=== PATIENT | male | born 1960 | race Hispanic/Latino ===

== ENCOUNTER 2019-09-07 17:04 | Emergency (ER) | payer BC | END 2019-09-07 17:49 | disposition home or self-care (01) | LOC: EDH 17:04 | DX: M25.572 Pain in left ankle and joints of left foot (principal); G89.29 Other chronic pain | CPT/HCPCS: 99282 ==

== ENCOUNTER → 2023-07-13 | Outpatient (CLI) | payer BC, OTHER | END | disposition home or self-care (01) | LOC: RAH 13:56 | PROVIDERS: ATTEND Family Medicine | DX: G31.89 Other specified degenerative diseases of nervous system (principal); G93.89 Other specified disorders of brain; R53.1 Weakness; R41.89 Other symptoms and signs involving cognitive functions and awareness; Z98.890 Other specified postprocedural states | CPT/HCPCS: 70450 ==

== ENCOUNTER → 2023-07-17 | Outpatient (CLI) | payer OTHER | END | disposition home or self-care (01) | LOC: RAH 15:09 | PROVIDERS: ATTEND Family Medicine | DX: G45.9 Transient cerebral ischemic attack, unspecified (principal); R53.1 Weakness; R41.89 Other symptoms and signs involving cognitive functions and awareness | CPT/HCPCS: 93880 ==

== ENCOUNTER → 2025-06-11 | Outpatient (CLI) | payer OTHER ==
[~2025-06-11] MED LIST: IOHEXOL 350 MG/ML 100ML INFUS..BTL IV ONE
--- NOTE | 2025-06-11 12:40 | HMCIMG ---
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 MIP reconstructed images were created and reviewed. Dose reduction technique was used including one or more of the following: automated exposure control, adjustment of mA and kV according to patient size, and/or iterative reconstruction. CONTRAST: None; COMPARISON: 07/13/2023 FINDINGS: INTERNAL CAROTID ARTERIES Atherosclerotic changes of the internal carotid arteries and their supraclinoid and cavernous portions with narrowing of 30 to 40% bilaterally. ANTERIOR CEREBRAL ARTERIES No significant stenosis. No occlusion. No aneurysm. MIDDLE CEREBRAL ARTERIES No significant stenosis. No occlusion. No aneurysm. POSTERIOR CEREBRAL ARTERIES No significant stenosis. No occlusion. No aneurysm. BASILAR ARTERY No significant stenosis. No occlusion. No aneurysm. VERTEBRAL ARTERIES No significant stenosis. No occlusion. No aneurysm. SOFT TISSUES: No acute finding. No masses or lymphadenopathy. 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 No acute osseous abnormality. OTHER FINDINGS: Noncontrast CT brain [address] brain 13 Jul 2023 similar to prior. IMPRESSION: 1. Atherosclerotic internal carotid arteries and their supraclinoid and cavernous portions with narrowing of 30 to 40% bilaterally, similar to prior noncontrast CT brain 13 Jul 2023. 2. 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 /[place]
== END | disposition home or self-care (01) ==
LOC: RAH 10:35
PROVIDERS: ATTEND Family Medicine
DX: G93.89 Other specified disorders of brain (principal); I65.23 Occlusion and stenosis of bilateral carotid arteries; G40.909 Epilepsy, unspecified, not intractable, without status epilepticus; G31.1 Senile degeneration of brain, not elsewhere classified; R47.01 Aphasia; Z87.820 Personal history of traumatic brain injury
CPT/HCPCS: 70496; Q9967